=== PATIENT | female | born 1995 | race Two or more races ===

== ENCOUNTER → 2022-05-06 | Outpatient (CLI) | payer BC ==
[2022-05-06 10:13] LABS: Basophils # (auto) 0 10 ^3/uL (0-0.2); Basophils % (auto) 0.9 % (0.0-2.0); Eosinophils # (auto) 0.2 10 ^3/uL (0-0.8); Eosinophils % (auto) 3.3 % (0.0-7.0); Hematocrit 40.5 % (36.0-46.0); Hemoglobin 14.1 g/dL (12.2-16.2); Lymphocytes # (auto) 1.7 10 ^3/uL (0.4-5.4); Lymphocytes % (auto) 31.5 % (10.0-50.0); Mean Corpuscular Hemoglobin 30.1 pg (28.0-32.0); Mean Corpuscular Hgb Conc. 34.9 g/dL (32.0-36.0); Mean Corpuscular Volume 86.2 fL (80.0-100.0); Monocytes # (auto) 0.4 10 ^3/uL (0-1.3); Monocytes % (auto) 7.2 % (0.0-12.0); Neutrophils # (auto) 3.1 10 ^3/uL (1.6-8.6); Neutrophils % (auto) 57.1 % (37.0-80.0); Red Cell Distribution Width 12.9 % (11.8-14.3); White Blood Cell 5.5 10^3/uL (4.4-10.8)
[2022-05-06 10:57] LABS: Potassium 3.4 mmol/L (3.5-5.1)
[2022-05-06 11:07] LABS: BUN/Creatinine Ratio 11.9; Bilirubin, Total 1.3 mg/dL (0.2-1.0); Calcium 8.7 mg/dL (8.5-10.1); Total Protein 7.2 g/dL (6.4-8.2)
== END | disposition home or self-care (01) ==
LOC: LAB 09:41
PROVIDERS: ATTEND Internal Medicine Nephrology
DX: F41.9 Anxiety disorder, unspecified (principal); M62.830 Muscle spasm of back
CPT/HCPCS: 36415; 80053; 80061; 83036; 84443; 85025